=== PATIENT | female | born 1995 | race Two or more races ===

== ENCOUNTER 2022-02-01 04:35 | Emergency (ER) | payer BC, OTHER ==
[~2022-02-01] VITALS: Ht 157.5 cm; Wt 61.2 kg
--- NOTE | 2022-02-01 04:47 | NUR ---
DR. SHIMA DUNN AT PT'S BEDSIDE
--- NOTE | 2022-02-01 04:48 | NUR ---
BIBRA7 FROM APPT C/O BACK PAIN. HX SPINAL DISC BULDGE. DENIES TRAUMA. PT A/OX4. TOLERATING R/A WELL WITH NO RESP DISTRESS. SAFETY MEASURES IN PLACE.
[2022-02-01] MEDS ORDERED: ONDANSETRON HCL/PF 4 MG/2 ML VIAL ONE (05:00)
[2022-02-01] MEDS ORDERED: ONDANSETRON HCL/PF 4 MG/2 ML VIAL IV ONE (05:00)
[2022-02-01] MEDS ORDERED: IV NS 0.9% 1,000 ML IV ONE (05:00)
[2022-02-01] MEDS ORDERED: KETOROLAC TROMETHAMINE INJ 30 MG/ML VIAL IV ONE (05:00)
[2022-02-01] MEDS ORDERED: KETOROLAC TROMETHAMINE INJ 30 MG/ML VIAL ONE (05:03)
--- NOTE | 2022-02-01 05:19 | NUR ---
R LASHONDA #20G S/L BLOOD COLLECTED AND SENT TO LAB
--- NOTE | 2022-02-01 05:20 | NUR ---
OFFERED PT URINE CUP; NOT ABLE TO URINATE AT THIS TIME. AWAITING URINE SAMPLE.
--- NOTE | 2022-02-01 05:22 | NUR ---
PATIENT REFUSED ZOFRAN BECAUSE IT WILL MAKE HER FEEL WORSE. AWARE.
[2022-02-01] MEDS ORDERED: HALOPERIDOL LACTATE INJ 5 MG/ML VIAL IM ONE (05:30)
[2022-02-01] MEDS ORDERED: HALOPERIDOL LACTATE INJ 5 MG/ML VIAL ONE (05:33)
[2022-02-01 05:46] LABS: BASOPHILS % (AUTO) 0.5 % (0.0-2.0); EOSINOPHILS % (AUTO) 0.7 % (0.0-6.0); HEMATOCRIT 42 % (33-45); HEMOGLOBIN 14.5 g/dL (11.5-14.8); LYMPHOCYTES # (AUTO) 1.8 K/uL (0.8-4.8); MEAN CORPUSCULAR HGB CONC 35 g/dl (31.0-36.0); MEAN CORPUSCULAR VOLUME 89 fL (82-100); MONOCYTES % (AUTO) 12.6 % (2.0-12.0); NEUTROPHILS # (AUTO) 5.1 K/uL (1.8-8.9); NEUTROPHILS % (AUTO) 63.2 % (43.0-81.0); PLATELET COUNT (AUTO) 217 K/uL (150-450); RED BLOOD CELL COUNT(AUTO) 4.74 MIL/uL (4.0-5.2)
[2022-02-01 06:32] LABS: ALBUMIN 3.8 g/dL (3.4-5.0); BILIRUBIN,DIRECT 0.1 mg/dL (0.0-0.2); BILIRUBIN,TOTAL 0.6 mg/dL (0.2-1.0); CALCIUM, SERUM 9.5 mg/dL (8.5-10.1); CREATININE 0.8 mg/dL (0.6-1.3); POTASSIUM 3.2 mmol/L (3.5-5.1); TOTAL PROTEIN, SERUM 8.3 g/dL (6.4-8.2)
[2022-02-01] MEDS ORDERED: LIDOCAINE 5% (PATCH) 1 EA PATCH TP SCH (07:00)
[2022-02-01] MEDS ORDERED: METHOCARBAMOL (750MG) 750 MG TABLET PO ONE (07:00)
[2022-02-01] MEDS ORDERED: POTASSIUM CHLORIDE 20 MEQ TAB.PRT.SR PO ONE (07:30)
[2022-02-01] MEDS ORDERED: METH-649 PO (07:56)
--- NOTE | 2022-02-01 08:05 | NUR ---
IV removed. Catheter intact and site benign. Pressure and 4x4 applied to site. No bleeding noted.
--- NOTE | 2022-02-01 08:15 | NUR ---
IV removed. Catheter intact and site benign. Pressure and 4x4 applied to site. No bleeding noted.
--- NOTE | 2022-02-01 08:18 | NUR ---
Patient discharged to home in stable condition. Written and verbal after care instructions given. Patient verbalizes understanding of instruction.
[2022-02-01 08:19] VITALS: BP 145/88
== END 2022-02-01 08:20 | disposition home or self-care (01) ==
LOC: ER 04:37
DX: M54.50 Low back pain, unspecified (principal); K21.9 Gastro-esophageal reflux disease without esophagitis; G89.29 Other chronic pain; Z88.8 Allergy status to other drugs, medicaments and biological substances
CPT/HCPCS: 99284; 96374; 96372; 72110; 85025; 80048; 83690; 80076; 36415; J1630; J1885; J2405